=== PATIENT | male | born 1985 | race African-American/Black ===

== ENCOUNTER 2018-09-23 08:28 | Emergency (ER) | payer SELFPAY ==
[~2018-09-23] VITALS: Ht 172.7 cm; Wt 72.7 kg
[2018-09-23 08:46] VITALS: Ht 172.7 cm; Wt 72.7 kg
[2018-09-23] MEDS ORDERED: NEURONTIN 300300 MG PO (10:53)
[2018-09-23] MEDS ORDERED: TORADOL10 MG PO (10:53)
[2018-09-23 11:22] VITALS: BP 130/77
== END 2018-09-23 11:10 | disposition home or self-care (01) ==
LOC: D.ER 08:28
DX: M54.16 Radiculopathy, lumbar region (principal)

== ENCOUNTER 2018-11-29 11:45 | Emergency (ER) | payer SELFPAY ==
[~2018-11-29] VITALS: Ht 172.7 cm; Wt 68.2 kg
[~2018-11-29 11:45] MED LIST: NEURONTIN 300300 MG PO; TORADOL10 MG PO
[2018-11-29 11:52] VITALS: Ht 172.7 cm; Wt 68.2 kg
[2018-11-29 13:21] VITALS: BP 117/78
== END 2018-11-29 13:22 | disposition left against medical advice (07) ==
LOC: D.ER 11:45
DX: R51 Headache (principal)

== ENCOUNTER 2018-12-24 15:30 | Emergency (ER) | payer SELFPAY ==
[~2018-12-24] VITALS: Ht 172.7 cm; Wt 68.2 kg
[2018-12-24 15:36] VITALS: Ht 172.7 cm; Wt 68.2 kg
[2018-12-24] MEDS ORDERED: VOLTAREN75 MG PO (16:40)
[2018-12-24] MEDS ORDERED: BACLOFEN20 M1 PO (16:40)
[2018-12-24 17:25] VITALS: BP 125/81
== END 2018-12-24 17:26 | disposition home or self-care (01) ==
LOC: D.ER 15:30
DX: M54.5 Low back pain (principal); M62.838 Other muscle spasm

== ENCOUNTER 2019-03-26 22:25 | Emergency (ER) | payer SELFPAY ==
[~2019-03-26] VITALS: Ht 172.7 cm; Wt 74.5 kg
[~2019-03-26 22:25] MED LIST changes: +BACLOFEN20 M1 PO; +VOLTAREN75 MG PO
[2019-03-26 22:34] VITALS: Ht 172.7 cm; Wt 74.5 kg
[2019-03-26] MEDS ORDERED: CYCLOBENZAPRINE10 MG PO (23:13)
[2019-03-26] MEDS ORDERED: VOLTAREN75 MG PO (23:13)
[2019-03-26 23:37] VITALS: BP 132/74
== END 2019-03-26 23:38 | disposition home or self-care (01) ==
LOC: D.ER 22:25
DX: M54.5 Low back pain (principal); M62.838 Other muscle spasm

== ENCOUNTER 2019-05-22 00:06 | Emergency (ER) | payer SELFPAY ==
[~2019-05-22] VITALS: Ht 172.7 cm; Wt 81.8 kg
[~2019-05-22 00:06] MED LIST changes: +CYCLOBENZAPRINE10 MG PO
[2019-05-22 00:12] VITALS: Ht 172.7 cm; Wt 81.8 kg
[2019-05-22] MEDS ORDERED: ROBAXIN500 MG PO (00:30)
[2019-05-22] MEDS ORDERED: VOLTAREN75 MG PO (00:30)
[2019-05-22 01:26] VITALS: BP 136/100
== END 2019-05-22 01:26 | disposition home or self-care (01) ==
LOC: D.ER 00:06
DX: M54.5 Low back pain (principal); M62.830 Muscle spasm of back

== ENCOUNTER 2019-07-07 22:52 | Emergency (ER) | payer SELFPAY ==
[~2019-07-07] VITALS: Ht 172.7 cm; Wt 72.7 kg
[~2019-07-07 22:52] MED LIST changes: +ROBAXIN500 MG PO
[2019-07-07 22:57] VITALS: Ht 172.7 cm; Wt 72.7 kg
[2019-07-07] MEDS ORDERED: VOLTAREN75 MG PO (23:50)
[2019-07-07] MEDS ORDERED: PROTONIX40 MG PO (23:50)
[2019-07-08 00:12] VITALS: BP 116/73
== END 2019-07-08 00:13 | disposition home or self-care (01) ==
LOC: D.ER 22:52
DX: M54.5 Low back pain (principal); Z76.0 Encounter for issue of repeat prescription

== ENCOUNTER 2019-11-03 15:12 | Emergency (ER) | payer SELFPAY ==
[~2019-11-03] VITALS: Ht 172.7 cm; Wt 78.2 kg
[~2019-11-03 15:12] MED LIST changes: +PROTONIX40 MG PO
[2019-11-03 15:19] VITALS: BP 123/78; Ht 172.7 cm; Wt 78.2 kg
[2019-11-03] MEDS ORDERED: ACETAMINOPHEN500 M1 PO (15:28)
[2019-11-03] MEDS ORDERED: CYCLOBENZAPRINE10 MG PO (15:28)
[2019-11-03] MEDS ORDERED: IBUPROFEN800 MG PO (15:28)
== END 2019-11-03 15:59 | disposition home or self-care (01) ==
LOC: D.ER 15:12
DX: M79.18 Myalgia, other site (principal); M54.5 Low back pain; T14.8XXA Other injury of unspecified body region, initial encounter; X58.XXXA Exposure to other specified factors, initial encounter; M54.9 Dorsalgia, unspecified

== ENCOUNTER 2020-02-09 07:24 | Emergency (ER) | payer MEDICAID ==
[~2020-02-09] VITALS: Ht 172.7 cm; Wt 81.8 kg
[~2020-02-09 07:24] MED LIST changes: +ACETAMINOPHEN500 M1 PO; +IBUPROFEN800 MG PO
[2020-02-09 07:34] VITALS: Ht 172.7 cm; Wt 81.8 kg
[2020-02-09] MEDS ORDERED: EC-NAPROSYN500 MG PO (08:09)
[2020-02-09 08:25] VITALS: BP 132/73
== END 2020-02-09 08:25 | disposition home or self-care (01) ==
LOC: D.ER 07:24
DX: M54.5 Low back pain (principal)

== ENCOUNTER 2020-03-17 23:14 | Emergency (ER) | payer MEDICAID ==
[~2020-03-17] VITALS: Ht 167.6 cm; Wt 81.4 kg
[~2020-03-17 23:14] MED LIST changes: +EC-NAPROSYN500 MG PO
[2020-03-17 23:20] VITALS: BP 135/80; Ht 167.6 cm; Wt 81.4 kg
[2020-03-17] MEDS ORDERED: ERYTHROMYCIN OPT1 GM EACH EYE (23:49)
== END 2020-03-18 00:37 | disposition home or self-care (01) ==
LOC: D.ER 23:14
DX: S05.02XA Injury of conjunctiva and corneal abrasion without foreign body, left eye, initial encounter (principal); R06.00 Dyspnea, unspecified

== ENCOUNTER 2020-04-01 19:10 | Emergency (ER) | payer MEDICAID ==
[~2020-04-01] VITALS: Ht 167.6 cm; Wt 77.1 kg
[~2020-04-01 19:10] MED LIST changes: +ERYTHROMYCIN OPT1 GM EACH EYE
[2020-04-01 19:21] VITALS: BP 130/85; Ht 167.6 cm; Wt 77.1 kg
[2020-04-01] MEDS ORDERED: NORFLEX100 MG PO (19:31)
== END 2020-04-01 19:56 | disposition home or self-care (01) ==
LOC: D.ER 19:10
DX: M54.5 Low back pain (principal); G89.29 Other chronic pain

== ENCOUNTER 2020-04-20 18:24 | Emergency (ER) | payer MEDICAID ==
[~2020-04-20] VITALS: Ht 167.6 cm; Wt 81.8 kg
[~2020-04-20 18:24] MED LIST changes: +NORFLEX100 MG PO
[2020-04-20 19:15] VITALS: BP 137/79; Ht 167.6 cm; Wt 81.8 kg
== END 2020-04-20 20:00 | disposition left against medical advice (07) ==
LOC: D.ER 18:24
DX: M54.5 Low back pain (principal)

== ENCOUNTER 2020-04-21 02:39 | Emergency (ER) | payer MEDICAID ==
[~2020-04-21] VITALS: Ht 167.6 cm; Wt 86.4 kg
[2020-04-21 02:45] VITALS: BP 123/82; Ht 167.6 cm; Wt 86.4 kg
== END 2020-04-21 03:31 | disposition home or self-care (01) ==
LOC: D.ER 02:39
DX: S39.012A Strain of muscle, fascia and tendon of lower back, initial encounter (principal); X58.XXXA Exposure to other specified factors, initial encounter; F17.210 Nicotine dependence, cigarettes, uncomplicated

== ENCOUNTER 2020-10-23 23:52 | Emergency (ER) | payer MEDICAID ==
[~2020-10-23] VITALS: Ht 167.6 cm; Wt 78.0 kg
[2020-10-23 23:55] VITALS: Ht 167.6 cm; Wt 78.0 kg
[2020-10-24 00:27] VITALS: BP 128/75
== END 2020-10-24 00:27 | disposition home or self-care (01) ==
LOC: D.ER 23:52
DX: M54.5 Low back pain (principal); G89.29 Other chronic pain

== ENCOUNTER 2020-12-01 20:21 | Emergency (ER) | payer MEDICAID ==
[~2020-12-01] VITALS: Ht 167.6 cm; Wt 77.5 kg
[2020-12-01 20:29] VITALS: Ht 167.6 cm; Wt 77.5 kg
[2020-12-01 21:37] VITALS: BP 121/86
== END 2020-12-01 21:37 | disposition home or self-care (01) ==
LOC: D.ER 20:21
DX: M54.5 Low back pain (principal); G89.29 Other chronic pain

== ENCOUNTER 2021-01-10 13:51 | Emergency (ER) | payer OTHER ==
[~2021-01-10] VITALS: Ht 167.6 cm; Wt 76.4 kg
[2021-01-10 13:54] VITALS: BP 121/77; Ht 167.6 cm; Wt 76.4 kg
== END 2021-01-10 14:43 | disposition home or self-care (01) ==
LOC: D.ER 13:51
DX: M54.5 Low back pain (principal); G89.29 Other chronic pain

== ENCOUNTER 2021-01-21 03:07 | Emergency (ER) | payer OTHER ==
[~2021-01-21] VITALS: Ht 167.6 cm; Wt 81.6 kg
[2021-01-21 03:13] VITALS: Ht 167.6 cm; Wt 81.6 kg
[2021-01-21] MEDS ORDERED: CYCLOBENZAPRINE10 MG PO (03:21)
[2021-01-21 03:39] VITALS: BP 136/88
== END 2021-01-21 03:41 | disposition home or self-care (01) ==
LOC: D.ER 03:07
DX: M54.5 Low back pain (principal)